=== PATIENT | male | born 1985 | race Caucasian/White ===

== ENCOUNTER 2016-12-30 06:18 | Emergency (ER) | payer SELFPAY ==
[~2016-12-30] VITALS: Ht 185.4 cm; Wt 70.3 kg
--- NOTE | 2016-12-30 06:46 | NUR ---
Patient arrived from home via private vehicle. Patient was hiking yesterday, he slipped on a large rock , his ankle was twisted as he fell. Per patient statement " My ankle got caught between two rocks as I kept falling". Patient states he is unable to bear weight on the ankle due to severe pain. LLE ankle has some swelling noted upon visual assessment, no echymosis noted. ER MD aware.
--- NOTE | 2016-12-30 08:40 | NUR ---
Patient discharged to home in stable conditon. Written and verbal after care instructions given. Patient verbalizes understanding of instructions. Stressed follow up.
== END 2016-12-30 08:41 | disposition home or self-care (01) ==
LOC: ER 06:28
DX: S93.402A Sprain of unspecified ligament of left ankle, initial encounter (principal); Z88.0 Allergy status to penicillin; F17.200 Nicotine dependence, unspecified, uncomplicated; X50.9XXA Other and unspecified overexertion or strenuous movements or postures, initial encounter; Y93.89 Activity, other specified; Y92.9 Unspecified place or not applicable; Y99.9 Unspecified external cause status
CPT/HCPCS: 73610; 99284; A4663